=== PATIENT | female | born 1960 | race Two or more races ===

== ENCOUNTER → 2020-06-16 | Outpatient (CLI) | payer OTHER ==
--- NOTE | 2020-06-16 12:25 | RAD ---
LUMBAR SPINE 2-3V DATE: 06/16/2020 12:00 AM INDICATION: Reason: LOW BACK PAIN / Spl. Instructions: / History: COMPARISON: None. FINDINGS: Five non-rib bearing lumbar-type vertebral bodies are present. Bones/Alignment: No evidence of acute compression fracture. There is no listhesis. Joints: Mild degenerative disc disease Miscellaneous: None. IMPRESSION: Mild lumbar spondylosis Electronically signed by: Reggie Carranza MD (06/16/2020 12:22 PM) [id number]
== END ==
LOC: DXRAD 10:54
PROVIDERS: ATTEND Family Medicine
DX: M51.36 Other intervertebral disc degeneration, lumbar region (principal); M47.816 Spondylosis without myelopathy or radiculopathy, lumbar region
CPT/HCPCS: 72100